=== PATIENT | female | born 1950 | race Hispanic/Latino ===

== ENCOUNTER → 2025-05-31 | Outpatient (CLI) | payer OTHER ==
[2025-05-31 10:12] LABS: CREATININE 0.7 mg/dL (0.5-1.0); GLOMERULAR FILTR. RATE CALC 91.0 mL/min (>90); UREA NITROGEN, BLOOD 21.0 mg/dL (7-18)
== END | disposition home or self-care (01) ==
LOC: RAH 09:21
PROVIDERS: ATTEND Internal Medicine Gastroenterology
DX: R10.30 Lower abdominal pain, unspecified (principal)
CPT/HCPCS: 36415; 82565; 84520

== ENCOUNTER → 2025-06-15 | Outpatient (CLI) | payer OTHER ==
[~2025-06-15] MED LIST: IOHEXOL-350 75 ML VIAL IV ONE
--- NOTE | 2025-06-15 15:50 | HMCIMG ---
CT ABDOMEN/PELVIS W/WO CONTRAS INDICATION: LOWER ABD PAIN TECHNIQUE: Axial images of the abdomen and pelvis were obtained from the bottom of the lungs through the symphysis pubis prior to, during and after intravenous administration of 75 ml of Omnipaque 350. The study was also obtained with oral contrast.. FINDINGS: The lung bases are clear. There is no pleural or pericardial effusion. The liver, spleen, pancreas, adrenals and kidneys are grossly normal. No nephrolithiasis or hydronephrosis noted. The right kidney has a cortical cyst in the upper pole. Gallbladder is visualized and is unremarkable. Bowel loops have normal caliber throughout. The abdominal aorta is unremarkable. No free fluid or inflammatory process identified. Cecum, sigmoid and rectum are unremarkable. Small and large bowels are well-opacified with oral contrast. There are scattered diverticulosis. Small bowel loops have normal caliber throughout. Bladder is partially distended and unremarkable. No bladder or ureteral calculus noted. No inflammatory process, free fluid or fluid collection identified. No skeletal abnormality identified. The uterus is atrophic and deviating towards the left side. Both adnexa appears to be normal. There is no mass or free fluid seen in the pelvis. IMPRESSION: No acute process seen a CT of the abdomen and pelvis with and without intravenous contrast and oral contrast..
== END | disposition home or self-care (01) ==
LOC: RAH 07:54
PROVIDERS: ATTEND Internal Medicine Gastroenterology
DX: N28.1 Cyst of kidney, acquired (principal); K57.90 Diverticulosis of intestine, part unspecified, without perforation or abscess without bleeding; N85.8 Other specified noninflammatory disorders of uterus; R10.30 Lower abdominal pain, unspecified
CPT/HCPCS: 74178; Q9967